=== PATIENT | male | born 1985 | race Caucasian/White ===

== ENCOUNTER → 2016-09-01 | Outpatient (CLI) | payer BC ==
[~2016-09-01] MED LIST: CONTRAST GIVEN MC PRN; IOHEXOL 240 MG/ML 50ML VIAL. PO ONE; IOHEXOL 300 MG/ML 75 ML VIAL IV ONE; LISI1TAB3 PO
--- NOTE | 2016-09-01 12:57 | RAD ---
Indication left lower quadrant pain for a week. Initially noncontrast images of the abdomen and pelvis were obtained. This was followed by portal venous phase imaging after the administration of both oral and IV contrast. Approximately 75 cc of Omnipaque 300 were administered intravenously. No prior imaging is available. There is a slightly irregular pulmonary nodule in the right middle lobe measuring approximately 11 mm in greatest dimension. Image 10 series 2. There is a tiny pleural-based 1 to 2 mm nodule in the right middle lobe image 1. There is a 3 mm nodule in the left lower lobe, image 15. An acute finding at either lung base is not seen. Follow-up imaging of the nodules, particularly the dominant nodule in the right middle lobe, along the lines of the Fleischner criteria is advised. On the noncontrast images no renal calculi are seen. There is no hydronephrosis hydroureter or calcification seen along the course of either ureter. Occasional calcifications, compatible with phleboliths, are noted in the pelvis. An acute or significant finding is not seen on the noncontrast images. The liver and spleen appear unremarkable and the gallbladder appears grossly normal. No adrenal or renal pathology is seen. The pancreas appears unremarkable. No acute or significant finding in the abdomen is seen. No acute or significant finding in the pelvis. IMPRESSION: Pulmonary nodules in the lower lung villarreal as outlined above. The dominant nodule is in the right middle lobe. Follow-up imaging along the lines of the Fleischner criteria is advised. No acute or significant finding seen in the abdomen or pelvis Nodules detected incidentally at non-screening CT Nodule size (mm) less than or equal to 4 Low Risk patients- no follow-up needed High Risk patients- follow-up at 12 months and if no change, no further imaging needed. Nodule size > 4-6 mm Low risk patients- follow- up at 12 months and if no change, no further imaging needed High risk patients- initial follow-up CT at 6-12 months and then at 18-24 months if no change. Nodule Size > 6-8 mm Low risk patients- initial follow-up CT at 6-12 months and then at 18-24 months if no change. High risk patients- initial follow- up CT at 3-6 months and then at 9-12 months if no change, Nodule Size >8 mm Either low or high risk patients: Follow-up CT at around 3, 9 and 24 [address], PET, and/or biopsy Note: newly detected indeterminate nodule in person 35 years of age or older. Low risk patients- minimal or absent history of smoking and/or other known risk factors. High risk patients- history of smoking or of other known risk factors. PQRS Compliance Statement: One or more of the following individualized dose reduction techniques were utilized for this examination: 1. Automated exposure control 2. Adjustment of the mA and/or kV according to patient size 3. Use of iterative reconstruction technique
== END | disposition home or self-care (01) ==
LOC: CT 09:58
PROVIDERS: ATTEND Family Medicine
DX: R91.1 Solitary pulmonary nodule (principal)
CPT/HCPCS: 74178; Q9966; Q9967

== ENCOUNTER → 2016-09-15 | Outpatient (CLI) | payer BC ==
[~2016-09-15] MED LIST changes: -CONTRAST GIVEN MC PRN; -IOHEXOL 240 MG/ML 50ML VIAL. PO ONE; -IOHEXOL 300 MG/ML 75 ML VIAL IV ONE
--- NOTE | 2016-09-15 16:27 | RAD ---
CT of the chest without contrast, 09/15/2016: History: Lung nodule Noncontrast scans were obtained as requested. There is a 12 mm noncalcified nodule in the right middle lobe abutting the oblique fissure as seen on image 215 of series #3. Its margins are slightly irregular. It is unchanged since 09/01/2016. There are linear parenchymal opacities extending superiorly and inferiorly from this nodule. This could be postinflammatory or neoplastic. There is a 5 mm noncalcified nodule in the lateral aspect of the left lower lobe as seen on image 227 of series #3. This is also unchanged. There is a tiny 3 mm nodule in the medial aspect of the left lower lobe as seen on image 223 of series #3. A 4 mm subpleural nodule is present posteromedially in the left lower lobe as seen on image 158 of series #3. There is no evidence of pleural fluid. No mediastinal adenopathy is seen. The thoracic aorta is unremarkable. There are scattered spurs and Schmorl's nodes in the thoracic spine. IMPRESSION: Scattered pulmonary opacities as described above with the largest of these lying in the right middle lobe. Given the patient's smoking history, CT follow-up beginning in 3-6 months (per Fleischner 2017 guidelines) is suggested to exclude a neoplastic etiology. PQRS Compliance Statement: One or more of the following individualized dose reduction techniques were utilized for this examination: 1. Automated exposure control 2. Adjustment of the mA and/or kV according to patient size 3. Use of iterative reconstruction technique
== END | disposition home or self-care (01) ==
LOC: CT 15:17
PROVIDERS: ATTEND Internal Medicine Pulmonary Disease
DX: R91.1 Solitary pulmonary nodule (principal)
CPT/HCPCS: 71250